=== PATIENT | male | born 1950 | race Caucasian/White ===

== ENCOUNTER → 2018-12-24 | Day surgery (SDC) | payer MEDICARE, OTHER ==
[2018-12-20 13:01] LABS: BASOPHILS # (AUTO) 0.1 (0.0-0.1); BASOPHILS % 0.8 % (0.0-1.0); EOSINOPHILS # (AUTO) 0.3 (0.0-0.4); EOSINOPHILS % 4.6 % (0.0-6.0); HEMATOCRIT 44.9 % (38.2-49.6); HEMOGLOBIN 14.4 g/dL (14.0-18.0); LYMPHOCYTES % 32.4 % (18.0-39.1); MEAN CORPUSCULAR HEMOGLOBIN 31.2 pg (28-32); MEAN CORPUSCULAR HGB CONC 32.1 g/dL (31-35); MEAN CORPUSCULAR VOLUME 97.4 fL (81-99); MONOCYTES # (AUTO) 0.6 (0.2-0.8); MONOCYTES % 9.7 % (4.4-11.3); NEUTROPHILS # (AUTO) 3.2 (2.1-6.9); NEUTROPHILS % 52.3 % (38.7-80.0); PLATELET COUNT 178 x10e3/uL (140-360); RED BLOOD COUNT 4.61 x10e6/uL (4.3-5.7)
[~2018-12-24] MED LIST: ATORVASTATIN CA20 MG PO; FENTANYL CITRATE/PF 100MCG/2 ML INJ ONE; GLUCAGON FOR INJ 1 MG VIAL ONE; HYOSCYAMINE SULFATE 0.5 MG/ML INJ ONE; LISINOPRIL10 MG PO; MIDAZOLAM HCL 2 MG/2 ML VIAL ONE; PROPOFOL IV EMULSION 10 MG/ML 20 ML VIAL ONE; PROPOFOL IV EMULSION 10 MG/ML 50 ML VIAL ONE
[2018-12-24 17:30] VITALS: BP 123/61
--- NOTE | 2018-12-24 21:07 | Operative Report ---
DATE OF PROCEDURE: 12/24/2018 SURGEON: Nic Mensah MD PROCEDURES: EGD with biopsies and colonoscopy with polypectomy. INDICATION FOR EGD: Heartburn, bloating. INDICATIONS FOR COLONOSCOPY: Colorectal cancer screening. MEDICATIONS: The patient was done under MAC, please see anesthesiologist's note. PROCEDURE IN DETAIL: With the patient in the left lateral decubitus position, flexible fiberoptic Olympus gastroscope was introduced into the esophagus under direct visualization without any difficulty. There was some patchy erythema noted in distal esophagus. The scope was then advanced with ease into the stomach. Mucosa overlying the antrum and the body revealed some patchy erythema and [id number] edema and biopsies were obtained and sent to stain for Helicobacter pylori. The pylorus was of normal contour and shape, was intubated with ease and the scope was advanced all the way to the second portion of the duodenum. The scope was then withdrawn slowly and mucosa overlying the proximal second portion and duodenal bulb grossly appeared to be within normal limits. Biopsies were obtained to rule out sprue. The scope was then withdrawn back into the stomach and retroflexed mucosa overlying the fundus and cardia appeared to be within normal limits. The scope was then straightened out. The stomach was decompressed. The scope was subsequently withdrawn. The patient tolerated the procedure well. IMPRESSION: 1. Distal esophagitis, mild. 2. Gastritis, biopsied. Biopsies sent to stain for Helicobacter pylori. 3. Rule out sprue. PLAN: Follow up histology and initiate Protonix 40 mg one p.o. q.a.m. a.c. The patient was then turned around and after adequate lubrication of the anal canal, flexible fiberoptic Olympus colonoscope was inserted into the rectum with ease and advanced all the way to the cecum. The cecum was suboptimally visualized due to retained stools. One polyp approximately 8 mm in size was removed per snare electrocautery from the proximal ascending colon and polypectomy site was hemoclipped. The rest of the ascending appeared to be within normal limits. An approximately 1.2-cm sessile polyp was noted in the hepatic flexure that was removed per snare electrocautery and the polypectomy site was hemoclipped. The transverse colon appeared to be within normal limits. One polyp was hot biopsied from the descending colon. Diverticular disease was noted to involve the distal descending and the sigmoid colon. One polyp was hot biopsied from the sigmoid. Two polyps were hot biopsied from the rectum. The scope was then retroflexed into the distal rectum and small internal hemorrhoids were noted, none of which was actively bleeding. The scope was then straightened out, it was subsequently withdrawn patient tolerated the procedure well. IMPRESSION: 1. Cecum suboptimally visualized due to retained stool. 2. Approximately 8-mm sessile polyp proximal ascending colon removed per snare electrocautery and polypectomy site was hemoclipped. 3. Approximately 1.2-cm sessile polypoid lesion in the hepatic flexure removed per snare electrocautery and polypectomy site was hemoclipped. 4. Descending colon polyp, hot biopsied. 5. Diverticulosis. 6. Sigmoid colon polyp, hot biopsied. 7. Rectal polyps x2, hot biopsied. 8. Internal hemorrhoids, none actively bleeding. PLAN: Follow up histology. Initiate high-fiber, low-fat diet. Initiate high-fiber supplement. Start VSL #3 one p.o. daily. The patient might benefit from a followup colonoscopy in 1 year. A total of six polyps were removed. Nic Mensah MD [facility] [place] [place] /[id number] cc: Nic Mensah MD
--- OUTSIDE RECORDS SUMMARY | 2018-12-26 15:52 | XMS REPORT ---
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 Allergies, Adverse Reactions, Alerts Allergy Name Allergy Type Status Severity Reaction(s) Onset Date Inactive Date Treating Clinician Comments Sulfa (Sulfonamide Antibiotics) DA Active U 2013-10-09 00:00:00 propoxyphene DA Active U 2013-10-09 00:00:00 acetaminophen DA Active U 2013-10-09 00:00:00 Medications This patient has no known medications.
== END | disposition home or self-care (01) ==
LOC: OR 12:02
PROVIDERS: ATTEND Internal Medicine Gastroenterology
DX: K29.70 Gastritis, unspecified, without bleeding (principal); D12.2 Benign neoplasm of ascending colon; D12.3 Benign neoplasm of transverse colon; K62.1 Rectal polyp; K31.7 Polyp of stomach and duodenum; K20.9 Esophagitis, unspecified; K57.30 Diverticulosis of large intestine without perforation or abscess without bleeding; K59.09 Other constipation; K62.5 Hemorrhage of anus and rectum; K64.8 Other hemorrhoids; E11.9 Type 2 diabetes mellitus without complications; I10 Essential (primary) hypertension; G47.33 Obstructive sleep apnea (adult) (pediatric); E78.5 Hyperlipidemia, unspecified; E66.01 Morbid (severe) obesity due to excess calories; Z88.6 Allergy status to analgesic agent; Z88.2 Allergy status to sulfonamides; Z01.810 Encounter for preprocedural cardiovascular examination; Z01.812 Encounter for preprocedural laboratory examination; Z68.30 Body mass index [BMI] 30.0-30.9, adult
CPT/HCPCS: 36415 ×2; 43239; 45384; 45385; 82948; 85025; 93005; J1610; J1980; J2250; J2704 ×2

== ENCOUNTER 2020-12-25 17:44 | Inpatient (IN) | payer MEDICARE ==
[~2020-12-25] VITALS: Ht 193 cm; Wt 134.7 kg
[~2020-12-25 17:44] MED LIST changes: -FENTANYL CITRATE/PF 100MCG/2 ML INJ ONE; -GLUCAGON FOR INJ 1 MG VIAL ONE; -HYOSCYAMINE SULFATE 0.5 MG/ML INJ ONE; -MIDAZOLAM HCL 2 MG/2 ML VIAL ONE; -PROPOFOL IV EMULSION 10 MG/ML 20 ML VIAL ONE; -PROPOFOL IV EMULSION 10 MG/ML 50 ML VIAL ONE
[2020-12-25] MEDS ORDERED: SODIUM CHLORIDE 0.9% 1000ML 1,000 ML IV ONE (18:30)
[2020-12-25 18:54] LABS: BASOPHILS # (AUTO) 0.1 (0.0-0.1); BASOPHILS % 0.4 % (0.0-1.0); EOSINOPHILS % 0.1 % (0.0-6.0); HEMATOCRIT 51.3 % (38.2-49.6); HEMOGLOBIN 17.1 g/dL (14.0-18.0); LYMPHOCYTES # (AUTO) 0.5 (1.0-3.2); LYMPHOCYTES % 2.5 % (18.0-39.1); MEAN CORPUSCULAR HEMOGLOBIN 30.6 pg (28-32); MEAN CORPUSCULAR HGB CONC 33.3 g/dL (31-35); MEAN CORPUSCULAR VOLUME 91.8 fL (81-99); MONOCYTES # (AUTO) 1.1 (0.2-0.8); MONOCYTES % 5.6 % (4.4-11.3); NEUTROPHILS # (AUTO) 18.5 (2.1-6.9); NEUTROPHILS % 90.9 % (38.7-80.0); PLATELET COUNT 196 x10e3/uL (140-360); RED BLOOD COUNT 5.59 x10e6/uL (4.3-5.7); RED CELL DISTRIBUTION WIDTH 14.7 % (11.7-14.4)
[2020-12-25] MEDS ORDERED: CEFEPIME HCL 1 GM VIAL IV ONE (19:00)
[2020-12-25 19:08] LABS: ALBUMIN 2.7 g/dL (3.5-5.0); ALBUMIN/GLOBULIN RATIO 0.6 (0.8-2.0); ANION GAP 15.1 mmol/L (8-16); CALCIUM 9.2 mg/dL (8.4-10.2); CREATININE, SERUM 1.46 mg/dL (0.72-1.25); POTASSIUM 4.1 mmol/L (3.5-5.1)
[2020-12-25] MEDS ORDERED: CEFEPIME HCL 1GM 1 GM in SODIUM CHLORIDE 0.9% 50ML 50 ML IV ONE (19:15)
[2020-12-25 19:44] LABS: AMYLASE 48 U/L (25-125); LIPASE 29 U/L (8-78)
[2020-12-25] MEDS: AZITHROMYCIN 500MG/NS 250 ML 250 ML IV SCH (20:23)
[2020-12-25 20:42] LABS: CLARITY,URINE SL CLOUDY (CLEAR); COLOR,URINE ORANGE (YELLOW); LEUKOCYTE ESTERASE ,URINE NEGATIVE (NEGATIVE); NITRITE,URINE NEGATIVE (NEGATIVE); PROTEIN,URINE DIPSTICK 2+ (NEGATIVE)
[2020-12-25 20:43] LABS: KETONES,URINE TRACE (NEGATIVE); URINE UROBILINOGEN >=8 mg/dL (0.2 - 1)
[2020-12-25 20:55] LABS: RBC,URINE 0-5 /HPF (0-5); WBC,URINE (MAN) 0-5 /HPF (0-5)
[2020-12-25 20:56] LABS: BACTERIA,URINE FEW /HPF; EPITHELIAL CELLS,URINE RARE /LPF
[2020-12-25] MEDS ORDERED: ONDANSETRON HCL INJ 2MG/ML 2ML 2 MG/ML VIAL IV PRN (22:45)
[2020-12-25] MEDS ORDERED: MORPHINE SULFATE INJ 4 MG/ML INJ 1ML IV PRN (23:00)
[2020-12-25] MEDS: SODIUM CHLORIDE 0.9% 1000ML 1,000 ML IV SCH (23:45)
[2020-12-25] MEDS: METRONIDAZOLE 500MG/NS 100ML 100 ML IV SCH (23:45)
[2020-12-26] VITALS (9 sets, daily range): BP systolic 116–150; BP diastolic 56–86
[2020-12-26] MEDS: METRONIDAZOLE 500MG/NS 100ML 100 ML IV SCH ×3 (05:51→17:24)
[2020-12-26] MEDS ORDERED: CEFEPIME HCL 1 GM VIAL IV SCH (06:00)
[2020-12-26] MEDS: CEFEPIME HCL IV SCH ×2 (06:00→14:54)
[2020-12-26] MEDS: SODIUM CHLORIDE 0.9% IV SCH ×2 (06:00→14:54)
[2020-12-26] MEDS: SODIUM CHLORIDE 0.9% 1000ML 1,000 ML IV SCH ×3 (06:45→22:45)
[2020-12-26] MEDS ORDERED: SODIUM CHLORIDE 0.9% 50ML 50 ML ONE ×2 (06:59→22:13)
[2020-12-26 07:04] LABS: BASOPHILS # (AUTO) 0.1 (0.0-0.1); BASOPHILS % 0.4 % (0.0-1.0); EOSINOPHILS # (AUTO) 0.1 (0.0-0.4); EOSINOPHILS % 0.4 % (0.0-6.0); HEMATOCRIT 48.5 % (38.2-49.6); HEMOGLOBIN 16.5 g/dL (14.0-18.0); LYMPHOCYTES # (AUTO) 1.1 (1.0-3.2); LYMPHOCYTES % 6.6 % (18.0-39.1); MEAN CORPUSCULAR HEMOGLOBIN 31.3 pg (28-32); MONOCYTES # (AUTO) 1.2 (0.2-0.8); MONOCYTES % 7.5 % (4.4-11.3); NEUTROPHILS # (AUTO) 13.9 (2.1-6.9); NEUTROPHILS % 84.6 % (38.7-80.0); PLATELET COUNT 183 x10e3/uL (140-360); RED BLOOD COUNT 5.27 x10e6/uL (4.3-5.7); RED CELL DISTRIBUTION WIDTH 14.8 % (11.7-14.4)
[2020-12-26 08:37] LABS: ALANINE AMINOTRANSFERASE 112 IU/L (0-55); ALBUMIN 2.4 g/dL (3.5-5.0); ALBUMIN/GLOBULIN RATIO 0.6 (0.8-2.0); ALKALINE PHOSPHATASE 330 IU/L (40-150); ANION GAP 13.2 mmol/L (8-16); BLOOD UREA NITROGEN 22 mg/dL (7-26); BUN/CREATININE RATIO 19 (6-25); CALCIUM 8.7 mg/dL (8.4-10.2); CARBON DIOXIDE 27 mmol/L (22-29); CHLORIDE 101 mmol/L (98-107); CREATININE, SERUM 1.18 mg/dL (0.72-1.25); EST GLOMERULAR FILTRATION RATE > 60 ML/MIN (60-); GLUCOSE 101 mg/dL (74-118); POTASSIUM 4.2 mmol/L (3.5-5.1); SODIUM 137 mmol/L (136-145)
[2020-12-26 10:32] LABS: AMYLASE 37 U/L (25-125); LIPASE 20 U/L (8-78)
[2020-12-26] MEDS: AZITHROMYCIN 500MG/NS 250 ML 250 ML IV SCH (21:00)
[2020-12-27] VITALS (8 sets, daily range): BP systolic 125–167; BP diastolic 72–89
[2020-12-27] MEDS: CEFEPIME HCL 1GM 1 GM in SODIUM CHLORIDE 0.9% 50ML 50 ML IV SCH ×4 (02:00→22:00)
[2020-12-27] MEDS: METRONIDAZOLE 500MG/NS 100ML 100 ML IV SCH ×4 (06:00→18:26)
[2020-12-27] MEDS: SODIUM CHLORIDE 0.9% 1000ML 1,000 ML IV SCH ×2 (06:45→13:52)
[2020-12-27 09:54] LABS: BASOPHILS % 0.3 % (0.0-1.0); EOSINOPHILS # (AUTO) 0.3 (0.0-0.4); EOSINOPHILS % 3.1 % (0.0-6.0); HEMATOCRIT 47.6 % (38.2-49.6); HEMOGLOBIN 15.9 g/dL (14.0-18.0); LYMPHOCYTES # (AUTO) 1.2 (1.0-3.2); MEAN CORPUSCULAR HEMOGLOBIN 30.9 pg (28-32); MEAN CORPUSCULAR HGB CONC 33.4 g/dL (31-35); MEAN CORPUSCULAR VOLUME 92.6 fL (81-99); MONOCYTES # (AUTO) 0.8 (0.2-0.8); MONOCYTES % 8.6 % (4.4-11.3); NEUTROPHILS # (AUTO) 6.8 (2.1-6.9); NEUTROPHILS % 74.7 % (38.7-80.0); PLATELET COUNT 177 x10e3/uL (140-360); RED BLOOD COUNT 5.14 x10e6/uL (4.3-5.7)
[2020-12-27 10:11] LABS: ALANINE AMINOTRANSFERASE 93 IU/L (0-55); ALBUMIN 2.2 g/dL (3.5-5.0); ALBUMIN/GLOBULIN RATIO 0.5 (0.8-2.0); ALKALINE PHOSPHATASE 346 IU/L (40-150); ANION GAP 11.4 mmol/L (8-16); BLOOD UREA NITROGEN 16 mg/dL (7-26); BUN/CREATININE RATIO 16 (6-25); CALCIUM 8.7 mg/dL (8.4-10.2); CARBON DIOXIDE 28 mmol/L (22-29); CHLORIDE 101 mmol/L (98-107); CREATININE, SERUM 0.97 mg/dL (0.72-1.25); EST GLOMERULAR FILTRATION RATE > 60 ML/MIN (60-); GLUCOSE 129 mg/dL (74-118); POTASSIUM 4.4 mmol/L (3.5-5.1); SODIUM 136 mmol/L (136-145)
[2020-12-27] MEDS ORDERED: GLUCAGON FOR INJ 1 MG VIAL ONE (12:53)
[2020-12-27] MEDS ORDERED: PROPOFOL IV EMULSION 10 MG/ML 20 ML VIAL ONE (12:53)
[2020-12-27] MEDS ORDERED: LIDOCAINE HCL 2% LOCAL INJ 5 ML SDV VIAL INJ ONE (12:53)
[2020-12-27] MEDS ORDERED: IOPAMIDOL 300MG/ML 50ML INFUS..BTL IV ONE (18:32)
[2020-12-27] MEDS ORDERED: INDOMETHACIN 50 MG SUPP.RECT RC ONE ×2 (18:33→18:52)
[2020-12-27] MEDS ORDERED: SODIUM CHLORIDE 0.9% 500ML 0 ML ONE (18:33)
[2020-12-27] MEDS ORDERED: LACTATED RINGER'S 1,000 ML ONE (20:51)
[2020-12-27] MEDS: AZITHROMYCIN 500MG/NS 250 ML 250 ML IV SCH (21:00)
[2020-12-28] VITALS (8 sets, daily range): BP systolic 138–154; BP diastolic 84–96
[2020-12-28] MEDS: CEFEPIME HCL 1GM 1 GM in SODIUM CHLORIDE 0.9% 50ML 50 ML IV SCH ×3 (06:15→22:30)
[2020-12-28] MEDS: METRONIDAZOLE 500MG/NS 100ML 100 ML IV SCH ×5 (06:15→23:40)
[2020-12-28] MEDS: PANTOPRAZOLE 40 MG 10ML VIAL IV SCH ×2 (09:47→16:42)
[2020-12-28] MEDS: SODIUM CHLORIDE 0.9% 1000ML 1,000 ML IV SCH ×3 (09:47→15:05)
[2020-12-28] MEDS ORDERED: FENTANYL CITRATE/PF 100MCG/2 ML INJ ONE (13:19)
[2020-12-28] MEDS ORDERED: MIDAZOLAM HCL 2 MG/2 ML VIAL ONE (13:19)
[2020-12-28] MEDS: AZITHROMYCIN 500MG/NS 250 ML 250 ML IV SCH (20:46)
[2020-12-29] VITALS (9 sets, daily range): BP systolic 73–165; BP diastolic 35–92
[2020-12-29] MEDS: SODIUM CHLORIDE 0.9% 1000ML 1,000 ML IV SCH ×4 (02:34→23:07)
[2020-12-29] MEDS ORDERED: ACETAMINOPHEN 325 MG TAB PO PRN (04:45)
[2020-12-29] MEDS: ACETAMINOPHEN 325 MG TAB PO PRN ×2 (04:48→14:49)
[2020-12-29] MEDS: METRONIDAZOLE 500MG/NS 100ML 100 ML IV SCH ×3 (05:05→16:44)
[2020-12-29] MEDS: CEFEPIME HCL 1GM 1 GM in SODIUM CHLORIDE 0.9% 50ML 50 ML IV SCH ×3 (05:40→22:19)
[2020-12-29 06:15] LABS: BASOPHILS # (AUTO) 0.1 (0.0-0.1); BASOPHILS % 0.9 % (0.0-1.0); EOSINOPHILS # (AUTO) 0.5 (0.0-0.4); EOSINOPHILS % 5.6 % (0.0-6.0); HEMATOCRIT 47.1 % (38.2-49.6); HEMOGLOBIN 15.6 g/dL (14.0-18.0); LYMPHOCYTES # (AUTO) 1.6 (1.0-3.2); MEAN CORPUSCULAR HEMOGLOBIN 30.6 pg (28-32); MEAN CORPUSCULAR HGB CONC 33.1 g/dL (31-35); MEAN CORPUSCULAR VOLUME 92.5 fL (81-99); MONOCYTES % 12.3 % (4.4-11.3); NEUTROPHILS # (AUTO) 4.9 (2.1-6.9); NEUTROPHILS % 60.7 % (38.7-80.0); PLATELET COUNT 205 x10e3/uL (140-360); RED BLOOD COUNT 5.09 x10e6/uL (4.3-5.7); RED CELL DISTRIBUTION WIDTH 14.9 % (11.7-14.4)
[2020-12-29 06:54] LABS: ALANINE AMINOTRANSFERASE 60 IU/L (0-55); ALBUMIN 2.3 g/dL (3.5-5.0); ALBUMIN/GLOBULIN RATIO 0.6 (0.8-2.0); ALKALINE PHOSPHATASE 269 IU/L (40-150); ANION GAP 11.3 mmol/L (8-16); BLOOD UREA NITROGEN 10 mg/dL (7-26); BUN/CREATININE RATIO 11 (6-25); CALCIUM 8.6 mg/dL (8.4-10.2); CARBON DIOXIDE 32 mmol/L (22-29); CHLORIDE 100 mmol/L (98-107); EST GLOMERULAR FILTRATION RATE > 60 ML/MIN (60-); GLUCOSE 84 mg/dL (74-118); POTASSIUM 4.3 mmol/L (3.5-5.1); SODIUM 139 mmol/L (136-145)
[2020-12-29] MEDS: PANTOPRAZOLE 40 MG 10ML VIAL IV SCH ×2 (08:33→16:44)
[2020-12-29] MEDS: LISINOPRIL 10 MG TAB PO SCH ×2 (08:33→21:00)
[2020-12-29] MEDS: AZITHROMYCIN 500MG/NS 250 ML 250 ML IV SCH (20:57)
[2020-12-29] MEDS ORDERED: SODIUM CHLORIDE 0.9% 250ML 250 ML IV ONE (23:45)
[2020-12-30] VITALS (24 sets, daily range): BP systolic 118–181; BP diastolic 69–107
[2020-12-30] MEDS ORDERED: SODIUM CHLORIDE 0.9% 1000ML 2,000 ML ONE (00:11)
[2020-12-30] MEDS ORDERED: OCTREOTIDE ACETATE 0.05 MG/ML AMP ONE (00:12)
[2020-12-30] MEDS ORDERED: SODIUM CHLORIDE 0.9% 250ML 250 ML ONE ×2 (00:14→00:55)
[2020-12-30] MEDS ORDERED: OCTREOTIDE ACETATE 500 MCG in SODIUM CHLORIDE 0.9% 250ML 249 ML IV SCH (00:15)
[2020-12-30] MEDS ORDERED: OCTREOTIDE ACETATE 500 MCG in SODIUM CHLORIDE 0.9% 250ML 250 ML IV SCH (00:15)
[2020-12-30] MEDS ORDERED: OCTREOTIDE ACETATE 0.05 MG in SODIUM CHLORIDE 0.9% 250ML 250 ML IV SCH (00:45)
[2020-12-30 00:53] LABS: INR 1.03; PROTHROMBIN TIME 14.1 seconds (11.9-14.5)
[2020-12-30 00:54] LABS: BASOPHILS # (AUTO) 0.1 (0.0-0.1); EOSINOPHILS # (AUTO) 0.4 (0.0-0.4); EOSINOPHILS % 3.9 % (0.0-6.0); HEMATOCRIT 43.3 % (38.2-49.6); HEMOGLOBIN 14.3 g/dL (14.0-18.0); LYMPHOCYTES # (AUTO) 2.5 (1.0-3.2); LYMPHOCYTES % 23.1 % (18.0-39.1); MEAN CORPUSCULAR HEMOGLOBIN 30.7 pg (28-32); MEAN CORPUSCULAR VOLUME 92.9 fL (81-99); MONOCYTES # (AUTO) 1.4 (0.2-0.8); MONOCYTES % 13.1 % (4.4-11.3); NEUTROPHILS # (AUTO) 6.4 (2.1-6.9); PLATELET COUNT 224 x10e3/uL (140-360); RED BLOOD COUNT 4.66 x10e6/uL (4.3-5.7); RED CELL DISTRIBUTION WIDTH 14.8 % (11.7-14.4)
[2020-12-30] MEDS ORDERED: OCTREOTIDE ACETATE 0.1 MG/ML 100MCG AMP ONE (00:56)
[2020-12-30] MEDS ORDERED: OCTREOTIDE ACETATE 0 ML ONE (01:01)
[2020-12-30 01:02] LABS: ALANINE AMINOTRANSFERASE 54 IU/L (0-55); ALBUMIN 2.2 g/dL (3.5-5.0); ALBUMIN/GLOBULIN RATIO 0.6 (0.8-2.0); ALKALINE PHOSPHATASE 257 IU/L (40-150); ANION GAP 13.5 mmol/L (8-16); BUN/CREATININE RATIO 20 (6-25); CALCIUM 8.9 mg/dL (8.4-10.2); CARBON DIOXIDE 32 mmol/L (22-29); CHLORIDE 99 mmol/L (98-107); CREATININE, SERUM 1.14 mg/dL (0.72-1.25); EST GLOMERULAR FILTRATION RATE > 60 ML/MIN (60-); GLUCOSE 128 mg/dL (74-118); POTASSIUM 4.5 mmol/L (3.5-5.1); SODIUM 140 mmol/L (136-145)
[2020-12-30 01:03] LABS: BLOOD UREA NITROGEN 23 mg/dL (7-26)
[2020-12-30 01:13] LABS: CREATINE KINASE MB 1.6 ng/mL (0-5.0)
[2020-12-30] MEDS: METRONIDAZOLE 500MG/NS 100ML 100 ML IV SCH ×4 (01:58→20:05)
[2020-12-30] MEDS ORDERED: OCTREOTIDE ACETATE 0.1 MG/ML 100MCG AMP SQ ONE (02:00)
[2020-12-30] MEDS ORDERED: PHYTONADIONE 10MG/ML 20 MG in SODIUM CHLORIDE 0.9% 50ML 50 ML IV ONE ×2 (02:00→22:15)
[2020-12-30] MEDS ORDERED: PHYTONADIONE 10 MG/ML AMP IV ONE (02:00)
[2020-12-30] MEDS: PANTOPRAZOLE INJ 40 MG in SODIUM CHLORIDE 0.9% 50ML 50 ML IV SCH ×2 (02:40→08:39)
[2020-12-30] MEDS ORDERED: IOPAMIDOL 370 MG/ML 200 ML INFUS..BTL INJ ONE (05:33)
[2020-12-30] MEDS ORDERED: SODIUM CHLORIDE 0.9% 50ML 50 ML ONE ×2 (05:33→16:20)
[2020-12-30] MEDS: CEFEPIME HCL 1GM 1 GM in SODIUM CHLORIDE 0.9% 50ML 50 ML IV SCH ×3 (05:53→21:38)
[2020-12-30 06:22] LABS: BASOPHILS # (AUTO) 0.1 (0.0-0.1); BASOPHILS % 0.8 % (0.0-1.0); EOSINOPHILS # (AUTO) 0.2 (0.0-0.4); EOSINOPHILS % 1.6 % (0.0-6.0); HEMATOCRIT 44.1 % (38.2-49.6); HEMOGLOBIN 14.5 g/dL (14.0-18.0); LYMPHOCYTES # (AUTO) 1.9 (1.0-3.2); LYMPHOCYTES % 15.5 % (18.0-39.1); MEAN CORPUSCULAR HEMOGLOBIN 30.7 pg (28-32); MEAN CORPUSCULAR HGB CONC 32.9 g/dL (31-35); MEAN CORPUSCULAR VOLUME 93.4 fL (81-99); MONOCYTES # (AUTO) 1.4 (0.2-0.8); MONOCYTES % 11.6 % (4.4-11.3); NEUTROPHILS # (AUTO) 8.4 (2.1-6.9); NEUTROPHILS % 69.7 % (38.7-80.0); PLATELET COUNT 226 x10e3/uL (140-360); RED BLOOD COUNT 4.72 x10e6/uL (4.3-5.7); RED CELL DISTRIBUTION WIDTH 14.7 % (11.7-14.4)
[2020-12-30 06:46] LABS: ALANINE AMINOTRANSFERASE 50 IU/L (0-55); ALBUMIN 2.3 g/dL (3.5-5.0); ALBUMIN/GLOBULIN RATIO 0.6 (0.8-2.0); ALKALINE PHOSPHATASE 217 IU/L (40-150); BLOOD UREA NITROGEN 23 mg/dL (7-26); BUN/CREATININE RATIO 23 (6-25); CALCIUM 8.6 mg/dL (8.4-10.2); CARBON DIOXIDE 30 mmol/L (22-29); CHLORIDE 100 mmol/L (98-107); EST GLOMERULAR FILTRATION RATE > 60 ML/MIN (60-); GLUCOSE 130 mg/dL (74-118); SODIUM 138 mmol/L (136-145)
[2020-12-30] MEDS: OCTREOTIDE ACETATE 0.05 MG in SODIUM CHLORIDE 0.9% 250ML 250 ML IV SCH (08:40)
[2020-12-30] MEDS: PANTOPRAZOLE 40 MG 10ML VIAL IV SCH ×2 (09:00→18:33)
[2020-12-30] MEDS: SODIUM CHLORIDE 0.9% 1000ML 1,000 ML IV SCH ×3 (12:31→22:45)
[2020-12-30 14:06] LABS: HEMATOCRIT 41.8 % (38.2-49.6); HEMOGLOBIN 13.5 g/dL (14.0-18.0)
[2020-12-30 18:30] LABS: HEMATOCRIT 39.2 % (38.2-49.6); HEMOGLOBIN 12.7 g/dL (14.0-18.0)
[2020-12-30] MEDS: AZITHROMYCIN 500MG/NS 250 ML 250 ML IV SCH (20:29)
[2020-12-31] VITALS (23 sets, daily range): BP systolic 118–168; BP diastolic 58–85
[2020-12-31 00:48] LABS: HEMATOCRIT 38.6 % (38.2-49.6); HEMOGLOBIN 12.5 g/dL (14.0-18.0)
[2020-12-31] MEDS: METRONIDAZOLE 500MG/NS 100ML 100 ML IV SCH ×4 (02:09→20:35)
[2020-12-31] MEDS ORDERED: PANTOPRAZOLE INJ 40 MG in SODIUM CHLORIDE 0.9% 50ML 50 ML IV SCH (03:15)
[2020-12-31] MEDS ORDERED: PANTOPRAZOLE INJ 80 MG in SODIUM CHLORIDE 0.9% 100 ML IV SCH (03:30)
[2020-12-31] MEDS: PANTOPRAZOLE INJ 80 MG in SODIUM CHLORIDE 0.9% 100 ML IV SCH ×2 (04:47→07:22)
[2020-12-31] MEDS: OCTREOTIDE ACETATE 0.05 MG in SODIUM CHLORIDE 0.9% 250ML 250 ML IV SCH (04:47)
[2020-12-31] MEDS: SODIUM CHLORIDE 0.9% 1000ML 1,000 ML IV SCH ×3 (05:17→22:15)
[2020-12-31 05:51] LABS: BASOPHILS # (AUTO) 0.1 (0.0-0.1); BASOPHILS % 0.7 % (0.0-1.0); EOSINOPHILS # (AUTO) 0.4 (0.0-0.4); EOSINOPHILS % 3.5 % (0.0-6.0); HEMATOCRIT 37.7 % (38.2-49.6); HEMOGLOBIN 12.2 g/dL (14.0-18.0); LYMPHOCYTES # (AUTO) 1.9 (1.0-3.2); LYMPHOCYTES % 17.6 % (18.0-39.1); MEAN CORPUSCULAR HGB CONC 32.4 g/dL (31-35); MEAN CORPUSCULAR VOLUME 95.9 fL (81-99); MONOCYTES # (AUTO) 1.3 (0.2-0.8); MONOCYTES % 11.7 % (4.4-11.3); NEUTROPHILS % 65.8 % (38.7-80.0); PLATELET COUNT 226 x10e3/uL (140-360); RED BLOOD COUNT 3.93 x10e6/uL (4.3-5.7); RED CELL DISTRIBUTION WIDTH 14.8 % (11.7-14.4)
[2020-12-31] MEDS: CEFEPIME HCL 1GM 1 GM in SODIUM CHLORIDE 0.9% 50ML 50 ML IV SCH ×3 (06:05→23:00)
[2020-12-31 06:08] LABS: ALANINE AMINOTRANSFERASE 43 IU/L (0-55); ALBUMIN 2.1 g/dL (3.5-5.0); ALBUMIN/GLOBULIN RATIO 0.6 (0.8-2.0); ALKALINE PHOSPHATASE 166 IU/L (40-150); ANION GAP 11.2 mmol/L (8-16); BLOOD UREA NITROGEN 16 mg/dL (7-26); BUN/CREATININE RATIO 18 (6-25); CARBON DIOXIDE 33 mmol/L (22-29); CHLORIDE 101 mmol/L (98-107); CREATININE, SERUM 0.88 mg/dL (0.72-1.25); EST GLOMERULAR FILTRATION RATE > 60 ML/MIN (60-); GLUCOSE 112 mg/dL (74-118); POTASSIUM 4.2 mmol/L (3.5-5.1); SODIUM 141 mmol/L (136-145)
[2020-12-31] MEDS: OCTREOTIDE ACETATE 500 MCG in SODIUM CHLORIDE 0.9% 250ML 249 ML IV SCH (18:19)
[2020-12-31] MEDS: PANTOPRAZOL 40MG/SOD CHL 0.9% 50 ML IV SCH ×2 (18:19→22:15)
[2020-12-31] MEDS: AZITHROMYCIN 500MG/NS 250 ML 250 ML IV SCH (22:15)
[2021-01-01] VITALS (8 sets, daily range): BP systolic 101–153; BP diastolic 55–84
[2021-01-01] MEDS ORDERED: DIPHENHYDRAMINE HCL 25 MG CAP PO ONE
[2021-01-01] MEDS: METRONIDAZOLE 500MG/NS 100ML 100 ML IV SCH ×4 (02:00→19:48)
[2021-01-01] MEDS: OCTREOTIDE ACETATE 500 MCG in SODIUM CHLORIDE 0.9% 250ML 249 ML IV SCH (05:00)
[2021-01-01] MEDS: PANTOPRAZOL 40MG/SOD CHL 0.9% 50 ML IV SCH ×4 (05:00→17:18)
[2021-01-01 05:53] LABS: BASOPHILS # (AUTO) 0.1 (0.0-0.1); BASOPHILS % 0.8 % (0.0-1.0); EOSINOPHILS # (AUTO) 0.4 (0.0-0.4); EOSINOPHILS % 3.8 % (0.0-6.0); HEMATOCRIT 34.8 % (38.2-49.6); HEMOGLOBIN 11.5 g/dL (14.0-18.0); LYMPHOCYTES # (AUTO) 1.6 (1.0-3.2); LYMPHOCYTES % 14.8 % (18.0-39.1); MEAN CORPUSCULAR HEMOGLOBIN 30.9 pg (28-32); MEAN CORPUSCULAR VOLUME 93.5 fL (81-99); MONOCYTES # (AUTO) 1.2 (0.2-0.8); MONOCYTES % 11.4 % (4.4-11.3); NEUTROPHILS # (AUTO) 7.3 (2.1-6.9); NEUTROPHILS % 68.6 % (38.7-80.0); PLATELET COUNT 216 x10e3/uL (140-360); RED BLOOD COUNT 3.72 x10e6/uL (4.3-5.7); RED CELL DISTRIBUTION WIDTH 14.6 % (11.7-14.4)
[2021-01-01] MEDS: CEFEPIME HCL 1GM 1 GM in SODIUM CHLORIDE 0.9% 50ML 50 ML IV SCH ×3 (05:56→21:58)
[2021-01-01 06:14] LABS: ALANINE AMINOTRANSFERASE 34 IU/L (0-55); ALBUMIN 2.1 g/dL (3.5-5.0); ALBUMIN/GLOBULIN RATIO 0.6 (0.8-2.0); ALKALINE PHOSPHATASE 154 IU/L (40-150); ANION GAP 10.7 mmol/L (8-16); BLOOD UREA NITROGEN 12 mg/dL (7-26); BUN/CREATININE RATIO 15 (6-25); CALCIUM 7.8 mg/dL (8.4-10.2); CARBON DIOXIDE 31 mmol/L (22-29); CHLORIDE 100 mmol/L (98-107); CREATININE, SERUM 0.79 mg/dL (0.72-1.25); EST GLOMERULAR FILTRATION RATE > 60 ML/MIN (60-); GLUCOSE 128 mg/dL (74-118); POTASSIUM 3.7 mmol/L (3.5-5.1); SODIUM 138 mmol/L (136-145)
[2021-01-01] MEDS: SODIUM CHLORIDE 0.9% 1000ML 1,000 ML IV SCH ×2 (09:23→17:17)
[2021-01-01] MEDS ORDERED: FENTANYL CITRATE/PF 100MCG/2 ML INJ ONE (12:41)
[2021-01-01] MEDS ORDERED: MIDAZOLAM HCL 2 MG/2 ML VIAL ONE (12:41)
[2021-01-01] MEDS ORDERED: BUPIVACAINE 0.25% 30ML SDV ONE (12:51)
[2021-01-01] MEDS ORDERED: DEXAMETHASONE SOD PHOS INJ 4 MG/ML VIAL ONE (13:44)
[2021-01-01] MEDS ORDERED: PROPOFOL IV EMULSION 10 MG/ML 20 ML VIAL ONE (13:44)
[2021-01-01] MEDS ORDERED: ONDANSETRON HCL INJ 2MG/ML 2ML 2 MG/ML VIAL ONE (13:44)
[2021-01-01] MEDS ORDERED: ROCURONIUM BROMIDE 10 MG/ML 5ML VIAL IV ONE (13:44)
[2021-01-01] MEDS ORDERED: EPHEDRINE SULFATE INJ 50 MG/ML VIAL ONE (13:44)
[2021-01-01] MEDS ORDERED: ATROPINE SULFATE 1 MG/ML VIAL ONE (13:44)
[2021-01-01] MEDS ORDERED: SEVOFLURANE INHAL SOLN 250 ML PEN BTL ONE (13:44)
[2021-01-01] MEDS ORDERED: POVIDONE IODINE 0.05% 0.05 % ML PO ONE (13:44)
[2021-01-01] MEDS ORDERED: LIDOCAINE HCL 2% LOCAL INJ 5 ML SDV VIAL INJ ONE (13:44)
[2021-01-01] MEDS ORDERED: NEOSTIGMINE 1 MG/ML 10ML VIAL ONE (13:44)
[2021-01-01] MEDS ORDERED: KETOROLAC TROMETHAMINE 30 MG/ML VIAL ONE (13:44)
[2021-01-01] MEDS ORDERED: PHENYLEPHRINE HCL 1% 10 MG/ML VIAL ONE (13:44)
[2021-01-01] MEDS ORDERED: SODIUM CHLORIDE 0.9% 50ML 50 ML ONE (14:32)
[2021-01-01] MEDS ORDERED: ONDANSETRON HCL INJ 2MG/ML 2ML 2 MG/ML VIAL IV PRN (15:15)
[2021-01-01] MEDS: AZITHROMYCIN 500MG/NS 250 ML 250 ML IV SCH (21:29)
[2021-01-02] VITALS (7 sets, daily range): BP systolic 113–128; BP diastolic 63–81
[2021-01-02] MEDS: PANTOPRAZOL 40MG/SOD CHL 0.9% 50 ML IV SCH ×6 (00:12→21:00)
[2021-01-02] MEDS: METRONIDAZOLE 500MG/NS 100ML 100 ML IV SCH ×4 (01:32→20:59)
[2021-01-02] MEDS: SODIUM CHLORIDE 0.9% 1000ML 1,000 ML IV SCH ×2 (03:15→09:52)
[2021-01-02] MEDS: CEFEPIME HCL 1GM 1 GM in SODIUM CHLORIDE 0.9% 50ML 50 ML IV SCH ×3 (05:02→23:38)
[2021-01-02 05:38] LABS: BASOPHILS % 0.2 % (0.0-1.0); HEMATOCRIT 35.4 % (38.2-49.6); HEMOGLOBIN 11.6 g/dL (14.0-18.0); LYMPHOCYTES # (AUTO) 0.8 (1.0-3.2); LYMPHOCYTES % 6.9 % (18.0-39.1); MEAN CORPUSCULAR HEMOGLOBIN 30.9 pg (28-32); MEAN CORPUSCULAR HGB CONC 32.8 g/dL (31-35); MEAN CORPUSCULAR VOLUME 94.4 fL (81-99); MONOCYTES # (AUTO) 0.9 (0.2-0.8); MONOCYTES % 7.5 % (4.4-11.3); NEUTROPHILS # (AUTO) 10.2 (2.1-6.9); NEUTROPHILS % 84.7 % (38.7-80.0); PLATELET COUNT 225 x10e3/uL (140-360); RED BLOOD COUNT 3.75 x10e6/uL (4.3-5.7); RED CELL DISTRIBUTION WIDTH 14.5 % (11.7-14.4)
[2021-01-02 06:06] LABS: ALANINE AMINOTRANSFERASE 45 IU/L (0-55); ALBUMIN 2.1 g/dL (3.5-5.0); ALBUMIN/GLOBULIN RATIO 0.6 (0.8-2.0); ALKALINE PHOSPHATASE 141 IU/L (40-150); ANION GAP 10.2 mmol/L (8-16); BLOOD UREA NITROGEN 13 mg/dL (7-26); BUN/CREATININE RATIO 14 (6-25); CALCIUM 7.8 mg/dL (8.4-10.2); CARBON DIOXIDE 32 mmol/L (22-29); CHLORIDE 100 mmol/L (98-107); CREATININE, SERUM 0.91 mg/dL (0.72-1.25); EST GLOMERULAR FILTRATION RATE > 60 ML/MIN (60-); GLUCOSE 175 mg/dL (74-118); POTASSIUM 4.2 mmol/L (3.5-5.1); SODIUM 138 mmol/L (136-145)
[2021-01-02] MEDS: AZITHROMYCIN 500MG/NS 250 ML 250 ML IV SCH (21:59)
[2021-01-03] VITALS (7 sets, daily range): BP systolic 120–141; BP diastolic 71–82
[2021-01-03] MEDS: MECLIZINE HCL 12.5 MG TAB PO SCH ×3 (02:17→20:57)
[2021-01-03] MEDS: PANTOPRAZOL 40MG/SOD CHL 0.9% 50 ML IV SCH ×5 (02:18→23:01)
[2021-01-03] MEDS: METRONIDAZOLE 500MG/NS 100ML 100 ML IV SCH ×4 (02:19→20:57)
[2021-01-03] MEDS: CEFEPIME HCL 1GM 1 GM in SODIUM CHLORIDE 0.9% 50ML 50 ML IV SCH ×3 (06:20→22:32)
[2021-01-03] MEDS: SODIUM CHLORIDE 0.9% 1000ML 1,000 ML IV SCH (10:48)
[2021-01-03] MEDS ORDERED: GADOBENATE DIMEGLUMINE 0 ML IV ONE (15:52)
[2021-01-03] MEDS ORDERED: SODIUM CHLORIDE 0.9% 50ML 0 ML ONE (15:52)
[2021-01-03] MEDS ORDERED: SODIUM CHLORIDE 0.9% 100 ML ONE (17:49)
[2021-01-03] MEDS ORDERED: IOPAMIDOL 370 MG/ML 200 ML INFUS..BTL INJ ONE (17:49)
[2021-01-03] MEDS: AZITHROMYCIN 500MG/NS 250 ML 250 ML IV SCH (20:57)
[2021-01-04] VITALS (8 sets, daily range): BP systolic 109–142; BP diastolic 69–79
[2021-01-04] MEDS: SODIUM CHLORIDE 0.9% 1000ML 1,000 ML IV SCH ×2 (02:16→20:28)
[2021-01-04] MEDS: METRONIDAZOLE 500MG/NS 100ML 100 ML IV SCH ×4 (02:49→20:00)
[2021-01-04] MEDS: PANTOPRAZOL 40MG/SOD CHL 0.9% 50 ML IV SCH ×4 (04:56→20:28)
[2021-01-04] MEDS: CEFEPIME HCL 1GM 1 GM in SODIUM CHLORIDE 0.9% 50ML 50 ML IV SCH ×3 (05:10→22:00)
[2021-01-04 07:08] LABS: BASOPHILS # (AUTO) 0.1 (0.0-0.1); EOSINOPHILS # (AUTO) 0.6 (0.0-0.4); EOSINOPHILS % 5.8 % (0.0-6.0); HEMOGLOBIN 11.8 g/dL (14.0-18.0); LYMPHOCYTES # (AUTO) 2.1 (1.0-3.2); MEAN CORPUSCULAR HEMOGLOBIN 31.1 pg (28-32); MEAN CORPUSCULAR HGB CONC 32.8 g/dL (31-35); MONOCYTES # (AUTO) 1.1 (0.2-0.8); MONOCYTES % 11.2 % (4.4-11.3); NEUTROPHILS # (AUTO) 5.7 (2.1-6.9); NEUTROPHILS % 59.2 % (38.7-80.0); PLATELET COUNT 263 x10e3/uL (140-360); RED BLOOD COUNT 3.79 x10e6/uL (4.3-5.7); RED CELL DISTRIBUTION WIDTH 14.8 % (11.7-14.4)
[2021-01-04 07:33] LABS: ALANINE AMINOTRANSFERASE 39 IU/L (0-55); ALBUMIN 2.2 g/dL (3.5-5.0); ALBUMIN/GLOBULIN RATIO 0.6 (0.8-2.0); ALKALINE PHOSPHATASE 124 IU/L (40-150); ANION GAP 12.6 mmol/L (8-16); BLOOD UREA NITROGEN 10 mg/dL (7-26); BUN/CREATININE RATIO 13 (6-25); CALCIUM 7.9 mg/dL (8.4-10.2); CARBON DIOXIDE 33 mmol/L (22-29); CHLORIDE 99 mmol/L (98-107); EST GLOMERULAR FILTRATION RATE > 60 ML/MIN (60-); GLUCOSE 89 mg/dL (74-118); POTASSIUM 3.6 mmol/L (3.5-5.1); SODIUM 141 mmol/L (136-145)
[2021-01-04] MEDS: MECLIZINE HCL 12.5 MG TAB PO SCH ×2 (09:23→14:18)
[2021-01-04] MEDS ORDERED: ULTRAM 50MG50 MG PO (12:43)
[2021-01-04] MEDS ORDERED: MECLIZINE HCL 12.5 MG TAB PO SCH (17:00)
[2021-01-04] MEDS: AZITHROMYCIN 500MG/NS 250 ML 250 ML IV SCH (20:28)
[2021-01-05] VITALS (8 sets, daily range): BP systolic 117–150; BP diastolic 64–82
[2021-01-05] MEDS: PANTOPRAZOL 40MG/SOD CHL 0.9% 50 ML IV SCH ×4 (01:41→14:43)
[2021-01-05] MEDS: CEFEPIME HCL 1GM 1 GM in SODIUM CHLORIDE 0.9% 50ML 50 ML IV SCH ×3 (06:10→21:56)
[2021-01-05] MEDS: MECLIZINE HCL 12.5 MG TAB PO SCH ×3 (09:07→21:56)
[2021-01-05] MEDS: SODIUM CHLORIDE 0.9% 1000ML 1,000 ML IV SCH (18:31)
[2021-01-06] VITALS (8 sets, daily range): BP systolic 122–149; BP diastolic 61–86
[2021-01-06] MEDS: PANTOPRAZOL 40MG/SOD CHL 0.9% 50 ML IV SCH ×3 (00:12→05:15)
[2021-01-06] MEDS: MECLIZINE HCL 12.5 MG TAB PO SCH ×3 (11:24→21:35)
[2021-01-06] MEDS: PANTOPRAZOLE SOD 40 MG TABEC PO SCH (16:56)
[2021-01-07] VITALS (7 sets, daily range): BP systolic 103–130; BP diastolic 67–83
[2021-01-07] MEDS ORDERED: ONDANSETRON HCL 4 MG ORAL DISINTEGRATING TAB PO PRN (10:00)
[2021-01-07] MEDS: MECLIZINE HCL 12.5 MG TAB PO SCH ×3 (10:50→21:59)
[2021-01-07] MEDS: PANTOPRAZOLE SOD 40 MG TABEC PO SCH ×2 (10:50→16:59)
[2021-01-08 02:26] VITALS: BP 115/71
[2021-01-08 06:57] VITALS: BP 106/67
[2021-01-08] MEDS: PANTOPRAZOLE SOD 40 MG TABEC PO SCH ×2 (08:00→17:11)
[2021-01-08 08:02] VITALS: BP 124/84
[2021-01-08 08:03] VITALS: BP 124/84
[2021-01-08] MEDS: MECLIZINE HCL 12.5 MG TAB PO SCH ×2 (10:06→15:36)
[2021-01-08 11:35] VITALS: BP 98/65
[2021-01-08 15:32] VITALS: BP 150/81
== END 2021-01-08 18:39 | DRG 417 ==
LOC: ER 20:03 → ERHOLD 22:48 → MED/SURG3 12-26 01:08 → ICU 12-30 01:42 → MED/SURG2 12-31 20:10
PROC: 0F798ZZ Dilation of Common Bile Duct, Via Natural or Artificial Opening Endoscopic (ICD-10-PCS; 2020-12-27)
PROC: 0FC98ZZ Extirpation of Matter from Common Bile Duct, Via Natural or Artificial Opening Endoscopic (ICD-10-PCS; principal; 2020-12-27 15:30)
PROC: 0FT44ZZ Resection of Gallbladder, Percutaneous Endoscopic Approach (ICD-10-PCS; 2021-01-01)
DX: K80.62 Calculus of gallbladder and bile duct with acute cholecystitis without obstruction (principal); K26.4 Chronic or unspecified duodenal ulcer with hemorrhage; J18.1 Lobar pneumonia, unspecified organism; D62 Acute posthemorrhagic anemia; Z85.528 Personal history of other malignant neoplasm of kidney; E11.9 Type 2 diabetes mellitus without complications; Z20.822 Contact with and (suspected) exposure to COVID-19; H81.10 Benign paroxysmal vertigo, unspecified ear; E66.01 Morbid (severe) obesity due to excess calories; Z68.36 Body mass index [BMI] 36.0-36.9, adult
CPT/HCPCS: 36415; 43260; 70450; 70496; 70498; 71045; 72125; 74174; 74181; 74328; 76705; 80053; 81001; 82140; 82150; 82270; 82550; 82553; 82948; 83605; 83690; 84484; 85014; 85018; 85025; 85610; 85730; 86850; 86900; 86920; 87040; 87086; 88304; 93005; 96361; 97139; 99251; 99285; J0456; J0461; J0692; J1100; J1610; J1885; J2001; J2250; J2353; J2354; J2370; J2405; J2710; J3010; J3430; J7030; J7040; J7050; J7121; Q9967; U0002

== ENCOUNTER 2021-01-28 18:50 | Inpatient (IN) | payer MEDICARE ==
[~2021-01-28] VITALS: Ht 193 cm; Wt 134.7 kg
[~2021-01-28 18:50] MED LIST changes: +ULTRAM 50MG50 MG PO
[2021-01-28 19:51] LABS: BASOPHILS # (AUTO) 0.1 (0.0-0.1); BASOPHILS % 0.6 % (0.0-1.0); EOSINOPHILS # (AUTO) 0.4 (0.0-0.4); EOSINOPHILS % 2.3 % (0.0-6.0); HEMATOCRIT 48.1 % (38.2-49.6); HEMOGLOBIN 15.7 g/dL (14.0-18.0); LYMPHOCYTES # (AUTO) 2.3 (1.0-3.2); LYMPHOCYTES % 15.1 % (18.0-39.1); MEAN CORPUSCULAR HEMOGLOBIN 30.3 pg (28-32); MEAN CORPUSCULAR HGB CONC 32.6 g/dL (31-35); MEAN CORPUSCULAR VOLUME 92.7 fL (81-99); MONOCYTES # (AUTO) 0.8 (0.2-0.8); MONOCYTES % 5.5 % (4.4-11.3); NEUTROPHILS # (AUTO) 11.3 (2.1-6.9); NEUTROPHILS % 75.9 % (38.7-80.0); PLATELET COUNT 335 x10e3/uL (140-360); RED BLOOD COUNT 5.19 x10e6/uL (4.3-5.7)
[2021-01-28 20:09] LABS: ALBUMIN 3.2 g/dL (3.5-5.0); ALBUMIN/GLOBULIN RATIO 0.7 (0.8-2.0); ANION GAP 20.3 mmol/L (8-16); CALCIUM 9.9 mg/dL (8.4-10.2); CREATININE, SERUM 1.3 mg/dL (0.72-1.25); POTASSIUM 4.3 mmol/L (3.5-5.1)
[2021-01-28 20:16] LABS: CREATINE KINASE MB 0.9 ng/mL (0-5.0)
[2021-01-28] MEDS ORDERED: SODIUM CHLORIDE 0.9% 1000ML 1,000 ML IV STA (20:20)
[2021-01-28] MEDS ORDERED: INSULIN REGULAR, HUMAN 100 UNIT/1 ML 3ML VIAL IV ONE (20:30)
[2021-01-28] MEDS ORDERED: IOPAMIDOL 370 MG/ML 200 ML INFUS..BTL INJ ONE (21:54)
[2021-01-28] MEDS ORDERED: SODIUM CHLORIDE 0.9% 50ML 50 ML ONE (21:54)
[2021-01-29] VITALS (7 sets, daily range): BP systolic 111–151; BP diastolic 66–84
[2021-01-29] MEDS ORDERED: VANCOMYCIN 1GM/NS 250 ML 250 ML IV STA (00:42)
[2021-01-29] MEDS ORDERED: CEFEPIME 1 GM in SODIUM CHLORIDE 0.9% 50ML 50 ML IV ONE (00:45)
[2021-01-29] MEDS ORDERED: SODIUM CHLORIDE 0.9% 50ML 50 ML ONE (01:02)
[2021-01-29] MEDS ORDERED: CEFEPIME HCL 1 GM VIAL ONE (01:02)
[2021-01-29] MEDS ORDERED: VANCOMYCIN 1GM/NS 250 ML 250 ML ONE (01:02)
[2021-01-29 01:54] LABS: CREATINE KINASE MB 2.2 ng/mL (0-5.0)
[2021-01-29 02:13] LABS: ANION GAP 13.3 mmol/L (8-16); BLOOD UREA NITROGEN 31 mg/dL (7-26); BUN/CREATININE RATIO 29 (6-25); CALCIUM 9.5 mg/dL (8.4-10.2); CARBON DIOXIDE 26 mmol/L (22-29); CHLORIDE 102 mmol/L (98-107); CREATININE, SERUM 1.06 mg/dL (0.72-1.25); EST GLOMERULAR FILTRATION RATE > 60 ML/MIN (60-); GLUCOSE 133 mg/dL (74-118); SODIUM 136 mmol/L (136-145)
[2021-01-29 02:18] LABS: POTASSIUM 5.3 mmol/L (3.5-5.1)
[2021-01-29] MEDS: LISINOPRIL 10 MG TAB PO SCH (16:44)
[2021-01-29] MEDS: TRAMADOL HCL 50 MG TAB PO SCH (16:45)
[2021-01-29 17:16] LABS: CREATINE KINASE MB 0.8 ng/mL (0-5.0)
[2021-01-29] MEDS: ATORVASTATIN 40 MG TAB PO SCH (20:38)
[2021-01-30 00:09] VITALS: BP 119/70
[2021-01-30 04:52] LABS: BASOPHILS # (AUTO) 0.1 (0.0-0.1); BASOPHILS % 0.8 % (0.0-1.0); EOSINOPHILS # (AUTO) 0.5 (0.0-0.4); EOSINOPHILS % 4.7 % (0.0-6.0); HEMATOCRIT 44.3 % (38.2-49.6); HEMOGLOBIN 14.3 g/dL (14.0-18.0); LYMPHOCYTES # (AUTO) 2.2 (1.0-3.2); LYMPHOCYTES % 23.1 % (18.0-39.1); MEAN CORPUSCULAR HEMOGLOBIN 30.2 pg (28-32); MEAN CORPUSCULAR HGB CONC 32.3 g/dL (31-35); MEAN CORPUSCULAR VOLUME 93.7 fL (81-99); MONOCYTES # (AUTO) 0.8 (0.2-0.8); PLATELET COUNT 256 x10e3/uL (140-360); RED BLOOD COUNT 4.73 x10e6/uL (4.3-5.7)
[2021-01-30 04:54] VITALS: BP 138/77
[2021-01-30] MEDS: TRAMADOL HCL 50 MG TAB PO SCH ×3 (05:21→17:25)
[2021-01-30 05:28] LABS: ALANINE AMINOTRANSFERASE 62 IU/L (0-55); ALBUMIN 2.8 g/dL (3.5-5.0); ALBUMIN/GLOBULIN RATIO 0.7 (0.8-2.0); ALKALINE PHOSPHATASE 131 IU/L (40-150); ANION GAP 13.6 mmol/L (8-16); BLOOD UREA NITROGEN 25 mg/dL (7-26); BUN/CREATININE RATIO 27 (6-25); CARBON DIOXIDE 29 mmol/L (22-29); CHLORIDE 100 mmol/L (98-107); CREATININE, SERUM 0.91 mg/dL (0.72-1.25); EST GLOMERULAR FILTRATION RATE > 60 ML/MIN (60-); GLUCOSE 102 mg/dL (74-118); POTASSIUM 4.6 mmol/L (3.5-5.1); SODIUM 138 mmol/L (136-145)
[2021-01-30 08:00] VITALS: BP 126/62
[2021-01-30 08:18] VITALS: BP 126/62
[2021-01-30] MEDS: LISINOPRIL 10 MG TAB PO SCH ×2 (09:00→17:00)
[2021-01-30] MEDS ORDERED: CEFEPIME HCL 1 GM VIAL IV SCH (11:15)
[2021-01-30] MEDS: SODIUM CHLORIDE 0.9% 1000ML 1,000 ML IV SCH ×2 (11:39→21:22)
[2021-01-30] MEDS: CEFEPIME 1 GM in SODIUM CHLORIDE 0.9% 50ML 50 ML IV SCH (11:39)
[2021-01-30 16:00] VITALS: BP 136/64
[2021-01-30 20:00] VITALS: BP 136/64
[2021-01-30] MEDS: ATORVASTATIN 40 MG TAB PO SCH (21:22)
[2021-01-31] VITALS (13 sets, daily range): BP systolic 50–138; BP diastolic 43–106
[2021-01-31] MEDS: CEFEPIME 1 GM in SODIUM CHLORIDE 0.9% 50ML 50 ML IV SCH ×2 (00:12→12:11)
[2021-01-31] MEDS: SODIUM CHLORIDE 0.9% 1000ML 1,000 ML IV SCH ×3 (05:02→20:50)
[2021-01-31] MEDS: TRAMADOL HCL 50 MG TAB PO SCH ×3 (05:03→17:49)
[2021-01-31] MEDS ORDERED: MIDODRINE 2.5 MG TAB PO SCH (08:00)
[2021-01-31] MEDS: LISINOPRIL 10 MG TAB PO SCH ×2 (08:24→15:09)
[2021-01-31] MEDS: MIDODRINE HCL 5 MG TABLET PO SCH ×3 (08:25→16:00)
[2021-01-31 08:52] LABS: BASOPHILS # (AUTO) 0.1 (0.0-0.1); EOSINOPHILS # (AUTO) 0.4 (0.0-0.4); EOSINOPHILS % 4.5 % (0.0-6.0); HEMATOCRIT 44.1 % (38.2-49.6); LYMPHOCYTES # (AUTO) 1.5 (1.0-3.2); LYMPHOCYTES % 18.1 % (18.0-39.1); MEAN CORPUSCULAR HEMOGLOBIN 30.2 pg (28-32); MEAN CORPUSCULAR HGB CONC 31.7 g/dL (31-35); MONOCYTES # (AUTO) 0.6 (0.2-0.8); MONOCYTES % 7.2 % (4.4-11.3); NEUTROPHILS # (AUTO) 5.8 (2.1-6.9); PLATELET COUNT 227 x10e3/uL (140-360); RED BLOOD COUNT 4.64 x10e6/uL (4.3-5.7)
[2021-01-31 09:29] LABS: ANION GAP 14.4 mmol/L (8-16); BLOOD UREA NITROGEN 22 mg/dL (7-26); BUN/CREATININE RATIO 27 (6-25); CARBON DIOXIDE 27 mmol/L (22-29); CHLORIDE 99 mmol/L (98-107); CREATININE, SERUM 0.83 mg/dL (0.72-1.25); EST GLOMERULAR FILTRATION RATE > 60 ML/MIN (60-); GLUCOSE 133 mg/dL (74-118); POTASSIUM 4.4 mmol/L (3.5-5.1); SODIUM 136 mmol/L (136-145)
[2021-01-31] MEDS: ATORVASTATIN 40 MG TAB PO SCH (20:43)
[2021-02-01] VITALS (12 sets, daily range): BP systolic 79–152; BP diastolic 51–85
[2021-02-01] MEDS: SODIUM CHLORIDE 0.9% 1000ML 1,000 ML IV SCH ×5 (03:30→21:47)
[2021-02-01] MEDS: TRAMADOL HCL 50 MG TAB PO SCH ×3 (06:02→17:51)
[2021-02-01] MEDS: MIDODRINE HCL 5 MG TABLET PO SCH ×3 (08:38→16:31)
[2021-02-01] MEDS: LISINOPRIL 10 MG TAB PO SCH (08:38)
[2021-02-01] MEDS: CEFEPIME 1 GM in SODIUM CHLORIDE 0.9% 50ML 50 ML IV SCH ×4 (12:17→23:28)
[2021-02-01] MEDS: ATORVASTATIN 40 MG TAB PO SCH (21:50)
[2021-02-02] VITALS (12 sets, daily range): BP systolic 82–136; BP diastolic 50–76
[2021-02-02] MEDS: SODIUM CHLORIDE 0.9% 1000ML 1,000 ML IV SCH ×4 (05:00→23:55)
[2021-02-02] MEDS: TRAMADOL HCL 50 MG TAB PO SCH ×3 (05:51→18:02)
[2021-02-02] MEDS: MIDODRINE HCL 5 MG TABLET PO SCH ×3 (08:35→16:12)
[2021-02-02] MEDS: CEFEPIME 1 GM in SODIUM CHLORIDE 0.9% 50ML 50 ML IV SCH ×2 (11:13→23:55)
[2021-02-02] MEDS: PYRIDOSTIGMINE BROMIDE 60 MG TAB PO SCH ×2 (15:10→21:40)
[2021-02-02] MEDS: ATORVASTATIN 40 MG TAB PO SCH (21:40)
[2021-02-03] VITALS (8 sets, daily range): BP systolic 93–149; BP diastolic 53–76
[2021-02-03 05:07] LABS: BASOPHILS # (AUTO) 0.1 (0.0-0.1); BASOPHILS % 0.7 % (0.0-1.0); EOSINOPHILS # (AUTO) 0.4 (0.0-0.4); EOSINOPHILS % 4.9 % (0.0-6.0); HEMATOCRIT 40.6 % (38.2-49.6); HEMOGLOBIN 13.3 g/dL (14.0-18.0); LYMPHOCYTES # (AUTO) 1.7 (1.0-3.2); LYMPHOCYTES % 20.1 % (18.0-39.1); MEAN CORPUSCULAR HEMOGLOBIN 30.5 pg (28-32); MEAN CORPUSCULAR HGB CONC 32.8 g/dL (31-35); MEAN CORPUSCULAR VOLUME 93.1 fL (81-99); MONOCYTES # (AUTO) 0.7 (0.2-0.8); MONOCYTES % 8.6 % (4.4-11.3); NEUTROPHILS # (AUTO) 5.6 (2.1-6.9); NEUTROPHILS % 65.4 % (38.7-80.0); PLATELET COUNT 204 x10e3/uL (140-360); RED BLOOD COUNT 4.36 x10e6/uL (4.3-5.7); RED CELL DISTRIBUTION WIDTH 13.7 % (11.7-14.4)
[2021-02-03] MEDS: TRAMADOL HCL 50 MG TAB PO SCH ×4 (05:57→18:00)
[2021-02-03 06:02] LABS: BLOOD UREA NITROGEN 18 mg/dL (7-26); BUN/CREATININE RATIO 24 (6-25); CALCIUM 8.9 mg/dL (8.4-10.2); CARBON DIOXIDE 28 mmol/L (22-29); CHLORIDE 99 mmol/L (98-107); CREATININE, SERUM 0.75 mg/dL (0.72-1.25); EST GLOMERULAR FILTRATION RATE > 60 ML/MIN (60-); GLUCOSE 100 mg/dL (74-118); SODIUM 135 mmol/L (136-145)
[2021-02-03] MEDS: SODIUM CHLORIDE 0.9% 1000ML 1,000 ML IV SCH ×3 (07:43→22:19)
[2021-02-03] MEDS: PYRIDOSTIGMINE BROMIDE 60 MG TAB PO SCH ×3 (10:29→21:25)
[2021-02-03] MEDS: ASPIRIN 81 MG ENTERIC COATED PO SCH (10:29)
[2021-02-03] MEDS: MIDODRINE HCL 5 MG TABLET PO SCH ×3 (10:29→16:23)
[2021-02-03] MEDS: CEFEPIME 1 GM in SODIUM CHLORIDE 0.9% 50ML 50 ML IV SCH ×2 (12:10→23:08)
[2021-02-03] MEDS: ATORVASTATIN 40 MG TAB PO SCH (21:25)
[2021-02-04] VITALS (11 sets, daily range): BP systolic 111–160; BP diastolic 60–99
[2021-02-04] MEDS: SODIUM CHLORIDE 0.9% 1000ML 1,000 ML IV SCH ×4 (03:59→23:27)
[2021-02-04] MEDS: TRAMADOL HCL 50 MG TAB PO SCH ×3 (05:01→16:15)
[2021-02-04 05:34] LABS: BASOPHILS # (AUTO) 0.1 (0.0-0.1); BASOPHILS % 0.9 % (0.0-1.0); EOSINOPHILS # (AUTO) 0.5 (0.0-0.4); EOSINOPHILS % 5.1 % (0.0-6.0); HEMOGLOBIN 13.3 g/dL (14.0-18.0); LYMPHOCYTES # (AUTO) 2.2 (1.0-3.2); LYMPHOCYTES % 23.9 % (18.0-39.1); MEAN CORPUSCULAR HGB CONC 31.7 g/dL (31-35); MEAN CORPUSCULAR VOLUME 94.6 fL (81-99); MONOCYTES # (AUTO) 0.9 (0.2-0.8); MONOCYTES % 9.3 % (4.4-11.3); NEUTROPHILS # (AUTO) 5.6 (2.1-6.9); NEUTROPHILS % 60.5 % (38.7-80.0); PLATELET COUNT 212 x10e3/uL (140-360); RED BLOOD COUNT 4.44 x10e6/uL (4.3-5.7); RED CELL DISTRIBUTION WIDTH 13.8 % (11.7-14.4)
[2021-02-04 06:03] LABS: ANION GAP 12.5 mmol/L (8-16); BLOOD UREA NITROGEN 14 mg/dL (7-26); BUN/CREATININE RATIO 20 (6-25); CALCIUM 8.8 mg/dL (8.4-10.2); CARBON DIOXIDE 30 mmol/L (22-29); CHLORIDE 101 mmol/L (98-107); CREATININE, SERUM 0.71 mg/dL (0.72-1.25); EST GLOMERULAR FILTRATION RATE > 60 ML/MIN (60-); GLUCOSE 90 mg/dL (74-118); POTASSIUM 4.5 mmol/L (3.5-5.1); SODIUM 139 mmol/L (136-145)
[2021-02-04] MEDS: ASPIRIN 81 MG ENTERIC COATED PO SCH (09:48)
[2021-02-04] MEDS: PYRIDOSTIGMINE BROMIDE 60 MG TAB PO SCH ×3 (09:48→20:47)
[2021-02-04] MEDS: MIDODRINE HCL 5 MG TABLET PO SCH ×3 (09:48→16:14)
[2021-02-04] MEDS: CEFEPIME 1 GM in SODIUM CHLORIDE 0.9% 50ML 50 ML IV SCH ×2 (12:18→23:27)
[2021-02-04] MEDS: SERTRALINE HCL 100 MG TAB PO SCH (17:00)
[2021-02-04] MEDS: ATORVASTATIN 40 MG TAB PO SCH (20:47)
[2021-02-04] MEDS: MIRTAZAPINE 15 MG TAB PO SCH (20:47)
[2021-02-05] VITALS (8 sets, daily range): BP systolic 124–153; BP diastolic 60–81
[2021-02-05] MEDS: TRAMADOL HCL 50 MG TAB PO SCH ×2 (06:05→12:00)
[2021-02-05] MEDS: SODIUM CHLORIDE 0.9% 1000ML 1,000 ML IV SCH ×3 (06:05→20:58)
[2021-02-05] MEDS: MIDODRINE HCL 5 MG TABLET PO SCH ×3 (08:00→16:00)
[2021-02-05] MEDS: ASPIRIN 81 MG ENTERIC COATED PO SCH (09:50)
[2021-02-05] MEDS: SERTRALINE HCL 100 MG TAB PO SCH (09:50)
[2021-02-05] MEDS: PYRIDOSTIGMINE BROMIDE 60 MG TAB PO SCH ×3 (09:50→21:00)
[2021-02-05] MEDS: CEFEPIME 1 GM in SODIUM CHLORIDE 0.9% 50ML 50 ML IV SCH ×2 (12:24→23:48)
[2021-02-05] MEDS: ATORVASTATIN 40 MG TAB PO SCH (21:00)
[2021-02-05] MEDS: MIRTAZAPINE 15 MG TAB PO SCH (21:00)
[2021-02-06] VITALS (7 sets, daily range): BP systolic 129–162; BP diastolic 75–83
[2021-02-06] MEDS: SODIUM CHLORIDE 0.9% 1000ML 1,000 ML IV SCH ×3 (03:37→17:21)
[2021-02-06] MEDS: MIDODRINE HCL 5 MG TABLET PO SCH ×3 (09:55→16:00)
[2021-02-06] MEDS: PYRIDOSTIGMINE BROMIDE 60 MG TAB PO SCH ×2 (09:55→17:21)
[2021-02-06] MEDS: ASPIRIN 81 MG ENTERIC COATED PO SCH (09:55)
[2021-02-06] MEDS: SERTRALINE HCL 100 MG TAB PO SCH (09:55)
[2021-02-06] MEDS: CEFEPIME 1 GM in SODIUM CHLORIDE 0.9% 50ML 50 ML IV SCH (12:00)
== END 2021-02-06 21:00 | DRG 871 ==
LOC: ER 19:26 → ERHOLD 01-29 00:48 → MED/SURG3 01-29 03:33
DX: A41.9 Sepsis, unspecified organism (principal); J18.9 Pneumonia, unspecified organism; Z79.890 Hormone replacement therapy; G90.1 Familial dysautonomia [Riley-Day]; I95.1 Orthostatic hypotension; E11.42 Type 2 diabetes mellitus with diabetic polyneuropathy; Z79.899 Other long term (current) drug therapy; R65.20 Severe sepsis without septic shock; E66.9 Obesity, unspecified; Z68.32 Body mass index [BMI] 32.0-32.9, adult
CPT/HCPCS: 36415; 70450; 71045; 74177; 80048; 80053; 80061; 82270; 82550; 82553; 82948; 83605; 84484; 85025; 87040; 87071; 87205; 93005; 93306; 95812; 96361; 97139; 99251; 99285; J0692; J1817; J3370; J7030; Q9967; U0002